=== PATIENT | male | born 1950 | race Caucasian/White ===

== ENCOUNTER → 2016-08-03 | Outpatient (CLI) | payer BC | END | disposition home or self-care (01) | LOC: GMAB 10:26 | PROVIDERS: ATTEND Family Medicine | DX: Z00.00 Encounter for general adult medical examination without abnormal findings (principal) ==

== ENCOUNTER → 2017-06-14 | Outpatient (CLI) | payer BC, OTHER ==
--- NOTE | 2017-06-15 03:47 | CT ---
EXAM DESCRIPTION: Chest w/o Contrast CLINICAL HISTORY: 66 years Male, COUGH. R05 COMPARISON: None. TECHNIQUE: Axial CT images of the chest were acquired without administration of intravenous contrast. Coronal and sagittal reconstructions were obtained. This exam was performed according to our departmental dose-optimization program which includes use of Automated Exposure Control, adjustment of the mA and/or kV according to patient size and/or use of iterative reconstruction technique. FINDINGS: Neck base: Unremarkable. Mediastinum: Unremarkable. Lymph Nodes: No lymphadenopathy. Heart and pericardium: Prior CABG. Coronary artery calcifications. No pericardial effusion. Aorta: A vascular stent is visualized within the left common carotid artery and left subclavian artery. There is moderate calcific atherosclerosis of the thoracic aorta. No aneurysm. Pulmonary Artery: Unremarkable. Central Airways: Patent. Pleura: No pneumothorax or pleural effusion. Lungs: Moderate emphysema. Small calcified granuloma superior segment right lower lobe image 61 series 6. 4 mm right lower lobe pulmonary nodule image 89 series 6. 8 mm left lower lobe pulmonary nodule image 87 series 6. Upper abdomen: Unremarkable. Bones and soft tissues: No acute osseous or soft tissue abnormalities. IMPRESSION: 8 mm left lower lobe pulmonary nodule and 4 mm right lower lobe pulmonary nodule. Follow-up is recommended in 3-6 months and then again at 18-24 months if no change. Alternatively PET CT may be considered. Electronically signed by: True Adames MD 06/15/2017 3:45 AM [employer]
== END | disposition home or self-care (01) ==
LOC: CT 09:50
PROVIDERS: ATTEND Family Medicine
DX: R05 Cough (principal)

== ENCOUNTER → 2018-05-21 | Outpatient (CLI) | payer MEDICARE, OTHER | LOC: GMAE 10:40 | PROVIDERS: ATTEND Family Medicine | DX: I10 Essential (primary) hypertension (principal); Z12.5 Encounter for screening for malignant neoplasm of prostate | CPT/HCPCS: 84443; G0103 ==

== ENCOUNTER → 2018-05-27 | Outpatient (CLI) | payer MEDICARE, OTHER ==
--- NOTE | 2018-05-27 18:37 | CT ---
EXAM DESCRIPTION: Chest w/o Contrast CLINICAL HISTORY: 67 years, Male, PULMONARY NODULE COMPARISON: None TECHNIQUE: Thin-section noncontrast axial CT images are obtained according to our protocol. Reconstructed MPR images are created and reviewed as well. FINDINGS: Lungs: No consolidating pulmonary infiltrate or groundglass infiltrate. No worrisome pulmonary mass or nodule. Small nodule in the medial basal segment left lower lobe as a central calcification consistent with benign granuloma 8 mm in size. Compared to previous study June 14, 2017, severe emphysema seen in both upper lobes as on the present study and areas of scarring appear stable. Left lower lobe nodule measured 8 mm. This is unchanged. The tiny central calcification was present previously. Linear scarring in the right middle lobe and in the inferior lingula is incidentally noted. Minimal subpleural scarring in the right lung base. Sternotomy wires are present. Mediastinum: Lymph nodes are normal in size. Normal vascular contours. Heart size is normal with no pericardial effusion. There is extensive coronary calcification. Chest wall/axilla: No mass or adenopathy. Lower neck/supraclavicular: No mass or adenopathy. Upper abdomen: Unremarkable upper abdominal viscera. Coronal and sagittal reformatted images confirm the findings. Additional small right lower lobe nodule is seen on the coronal images with a tiny linear scar in the upper most superior segment right lower lobe. These are seen on coronal image 115, series 602. The nodule in the left lower lobe is seen on coronal image 112. Compared to the previous coronal images, all of these findings are stable consistent with benign granulomatous sequelae of previous inflammation. IMPRESSION: Unchanged pulmonary nodules. Follow-up in one year as per recommendations below. 2017 Fleischner Society Recommendations for Multiple Solid Lung Nodules Follow-Up base on size (average of long- and short-axis diameters). Use most suspicious nodule for followup. Nodule Size <6 mm Low-Risk Patient: No routine follow-up Nodule Size <6 mm High-Risk Patient: Optional CT at 12 months Nodule Size 6-8 mm Low-Risk Patient: CT at 3-[address] at 18-24 months Nodule Size 6-8 mm High-Risk Patient: CT at 3-6 months then at 18-24 months This exam was performed according to our departmental dose-optimization program, which includes automated exposure control, adjustment of the mA and/or kV according to patient size and/or use of iterative reconstruction technique. Total DLP equals 693.36 mGycm. Electronically signed by: Nicholas Brandon MD 05/27/2018 6:36 PM [facility]
== END ==
LOC: CT 11:00
PROVIDERS: ATTEND Family Medicine
DX: R91.1 Solitary pulmonary nodule (principal)

== ENCOUNTER → 2019-05-25 | Outpatient (CLI) | payer MEDICARE, OTHER | LOC: GMAE 10:26 | PROVIDERS: ATTEND Family Medicine | DX: I10 Essential (primary) hypertension (principal); Z12.5 Encounter for screening for malignant neoplasm of prostate | CPT/HCPCS: 84443; G0103 ==